=== PATIENT | female | born 1990 | race African-American/Black ===

== ENCOUNTER 2023-03-30 03:12 | Emergency (ER) | payer BC ==
[~2023-03-30] VITALS: Ht 170.2 cm; Wt 83.0 kg
[2023-03-30 03:19] VITALS: BP 135/85
--- NOTE | 2023-03-30 03:32 | ER.PDOC ---
General Chief Complaint: Eye Problems Stated Complaint: EYE REDNESS Time seen by MD: 03:25 Source: patient, family Exam Limitations: no limitations History of Present Illness Initial Comments 32 yo F is from out of town, has a history of seasonal/environmental allergies, and staying in a hotel here while s.o. works nearby. Having some conjunctivitis symptoms noticed mostly on awakening for the past unclear period of days, worried that perhaps her eyes are bloodshot because of high blood pressure. (Concern suggested to her by a relative.) Symptoms tend to resolve quickly with an unclear eye drop which she uses. Also having some anxiety related to this. Timing/Duration: gradual Associated Symptoms: itching Location: both eyes Severity: mild Apparent Inury: No Where: other Past Medical History Medical History: no pertinent history Surgical History: no surgical history Family History Significant Family History: no pertinent family hx Social History Smoking: cigarettes Alcohol Use: occassionally Drug Use: none Reviewed Nursing Reviewed: Vital Signs, Abn. Noted, Nursing Assessment Constitutional: no symptoms reported Eyes: see HPI Ears: no symptoms reported Nose: no symptoms reported Mouth: no symptoms reported Throat: no symptoms reported Respiratory: no symptoms reported Cardiovascular: no symptoms reported Gastrointestinal: no symptoms reported Musculoskeletal: no symptoms reported Skin: no symptoms reported Neurological: no symptoms reported All Other Systems: Reviewed and Negative Physical Exam General Appearance: alert Visual Acuity: no globe trauma Eyelid: nml inspection, (R) erythema (very very minor), (L) erythema (very very minor) Corneas: nml inspection EOM's: intact Head/ENT: nml inspection Skin Exam: Normal Color Neck/Back: nml inspection Resp/CVS: lungs clear Abdomen: non-tender NEURO/PSYCH: oriented X3, mood/effect nml Results/Orders Results/Orders Vital Signs Date Time Temp Pulse Resp B/P (MAP) Pulse Ox O2 Delivery O2 Flow Rate FiO2 03/30/23 03:19 97.9 82 14 135/85 (102) 99 Room Air* 0 21 03/30/23 03:19 97.9 82 14 99 Progress Progress MDM Likely just an allergic conjunctivitis brought on by the area and pt's hotel room AC. We will recommend some [employer] and outpatient followup. PT has questions about her BP - it is 135 systolic. We have offered some reassurance and recommended clinic follow up for that too. ER DEPART Departure Time of Disposition: 03:35 Disposition: 01 HOME / SELF CARE / HOMELESS Impression: Primary Impression: Allergic conjunctivitis Condition: Stable Patient Instructions: Allergic Conjunctivitis, [id number] Referrals: PCP,UNKNOWN (PCP) PRIMARY CARE PROVIDER Additional Instructions: Medications as directed. See a clinic doctor or an oncology specialist (management engineer) if symptoms persist or worsen. Duration or Time Spent with Pa: 10 min NYA RIVERA MD Mar 30, 2023 03:32
== END 2023-03-30 03:43 | disposition home or self-care (01) ==
LOC: ER 03:12
DX: H10.13 Acute atopic conjunctivitis, bilateral (principal); F41.9 Anxiety disorder, unspecified; F17.210 Nicotine dependence, cigarettes, uncomplicated
CPT/HCPCS: 99281